=== PATIENT | male | born 1955 | race Caucasian/White ===

== ENCOUNTER 2018-04-05 19:27 | Emergency (ER) | payer OTHER ==
--- NOTE | 2018-04-05 19:46 | ERPHSYRPT ---
- History of Present Illness Time Seen by Provider: 04/05/18 19:37 Historian: patient, EMS Exam Limitations: no limitations Physician History: Patient is a 62-year-old male brought in by ambulance from the [facility] when he developed chest pain about 3 hours ago after working on his car. He had only coffee to drink in the morning. The chest pain is described as sharp and achy. He rates it initially an 8 of 10. He denies shortness of breath. He was nauseated and vomited. He was very sweaty and clammy when the EMS arrived. EMS started fluids by IV and gave him one nitroglycerin and 4 baby aspirin. His pain is now a 4 out of 10. He smokes cigarettes. He has no primary care physician. He takes no prescriptions. His father had open heart surgery at age 59. Timing/Duration: today, hour(s) (3) Activities at Onset: activity Quality: aching, sharpness Location: central Chest Pain Radiation: no radiation Severity of Pain-Max: severe Severity of Pain-Current: moderate Modifying Factors: Improves With: nitroglycerin, aspirin Associated Symptoms: nausea, vomiting, diaphoresis, No shortness of breath Prior Chest Pain/Cardiac Workup: no prior chest pain Nitro Today/Relief: 0.4 mg x 3, provided by EMS, provided by ED, mild relief Aspirin Treatment Today: 81 mg x 4, provided by EMS Allergies/Adverse Reactions: morphine Adverse Reaction (Verified 04/05/18 19:51) Skin Irritation - Review of Systems Constitutional: No Fever, No Chills Eyes: No Symptoms Ears, Nose, & Throat: No Symptoms Respiratory: No Cough, No Dyspnea Cardiac: Chest Pain Abdominal/Gastrointestinal: Nausea, Vomiting Genitourinary Symptoms: No Dysuria Musculoskeletal: No Back Pain, No Neck Pain Skin: No Rash Neurological: No Dizziness, No Focal Weakness, No Sensory Changes Psychological: No Symptoms Endocrine: No Symptoms Hematologic/Lymphatic: No Symptoms Immunological/Allergic: No Symptoms All Other Systems: Reviewed and Negative - Nursing Vital Signs Nursing Vital Signs: Initial Vital Signs Temperature 99.2 F 04/05/18 19:31 Pulse Rate 60 04/05/18 19:31 Respiratory Rate 16 04/05/18 19:31 Blood Pressure 112/66 04/05/18 19:31 O2 Sat by Pulse Oximetry 98 04/05/18 19:31 Pain Scale Pain Intensity 3 - Physical Exam General Appearance: mild distress, alert, thin Eye Exam: PERRL/EOMI, eyes nml inspection Ears, Nose, Throat Exam: dry mucous membranes Neck Exam: normal inspection, non-tender, supple, full range of motion Respiratory Exam: normal breath sounds, lungs clear, No respiratory distress Cardiovascular Exam: regular rate/rhythm, normal heart sounds Gastrointestinal/Abdomen Exam: soft, No tenderness, No mass Rectal Exam: not done Back Exam: normal inspection, No CVA tenderness, No vertebral tenderness Extremity Exam: normal inspection, normal range of motion Neurologic Exam: alert, oriented x 3, cooperative, normal mood/affect, sensation nml, No motor deficits Skin Exam: normal color, warm, dry SpO2 Interpretation: normal Oxygen Delivery: Room Air Ordered Tests: Active Orders 24 hr Category Date Time Status Traveling Secretary STAT Care 04/05/18 19:52 Active EKG-ER Only STAT Care 04/05/18 19:51 Active IV Insertion STAT Care 04/05/18 19:51 Active Oxygen-ED Only NASAL CANNULA 2 lpm Care 04/05/18 19:51 Active Pulse Oximetry (ED) STAT Care 04/05/18 19:51 Active CHEST 2 VIEWS (PA AND LAT) Stat Exams 04/05/18 19:52 Taken CBC W DIFF Stat Lab 04/05/18 20:45 Completed CMP Stat Lab 04/05/18 20:45 Completed D-DIMER QUANTITATION Stat Lab 04/05/18 20:45 Completed NT PRO BNP Stat Lab 04/05/18 20:45 Completed TROPONIN Q3H Lab 04/05/18 20:45 Completed TROPONIN Q3H Lab 04/05/18 23:00 Ordered TROPONIN Q3H Lab 04/06/18 02:00 Ordered TROPONIN Q3H Lab 04/06/18 05:00 Ordered TROPONIN Q3H Lab 04/06/18 08:00 Ordered Urine Triage Profile Stat Lab 04/05/18 22:21 Received Medication Summary Generic Name Dose Route Start Last Admin Trade Name Freq PRN Reason Stop Dose Admin Sodium Chloride 1,000 mls @ 999 mls/hr 04/05/18 21:59 04/05/18 22:18 Sodium Chloride 0.9% 1000 Ml IV 04/05/18 22:59 999 mls/hr .Q1H1M STA Administration Discontinued Medications Generic Name Dose Route Start Last Admin Trade Name Freq PRN Reason Stop Dose Admin Sodium Chloride 1,000 mls @ 999 mls/hr 04/05/18 19:51 04/05/18 21:12 Sodium Chloride 0.9% 1000 Ml IV 04/05/18 20:51 Infused .Q1H1M STA Infusion Sodium Chloride Confirm 04/05/18 20:02 Sodium Chloride 0.9% 1000 Ml Administered 04/05/18 20:03 Dose 1,000 mls @ ud .ROUTE .STK-MED ONE Sodium Chloride Confirm 04/05/18 22:02 Sodium Chloride 0.9% 1000 Ml Administered 04/05/18 22:03 Dose 1,000 mls @ ud .ROUTE .STK-MED ONE Nitroglycerin 0.4 mg 04/05/18 19:51 04/05/18 20:10 Nitrostat 0.4 Mg (Ed) SL 04/05/18 19:52 0.4 mg STAT ONE Administration Nitroglycerin Confirm 04/05/18 20:02 Nitrostat 0.4 Mg (Ed) Administered 04/05/18 20:03 Dose 0.4 mg SL .STK-MED ONE Nitroglycerin 0.4 mg 04/05/18 21:15 04/05/18 21:07 Nitrostat 0.4 Mg (Ed) SL 04/05/18 21:16 0.4 mg STAT ONE Administration Ondansetron HCl 4 mg 04/05/18 19:51 04/05/18 20:12 Zofran 4 Mg/2 Ml Vial IV 04/05/18 19:52 4 mg STAT ONE Administration Ondansetron HCl Confirm 04/05/18 20:02 Zofran 4 Mg/2 Ml Vial Administered 04/05/18 20:03 Dose 4 mg .ROUTE .STK-MED ONE Lab/Rad Data: Laboratory Result Diagrams 04/05/18 20:45 04/05/18 20:45 Laboratory Results 04/05/18 04/05/18 04/05/18 Range/Units 20:45 20:45 20:45 WBC (4.0-10.5) K/mm3 RBC (4.1-5.6) M/mm3 Hgb (12.5-18.0) gm/dl Hct (42-50) % MCV (78-100) fl MCH (26-32) pg MCHC (32-36) g/dl RDW (11.5-14.0) % Plt Count (150-450) K/mm3 MPV (6-9.5) fl Gran % (36.0-66.0) % Eos # (Auto) (0-0.5) Absolute Lymphs (auto) (1.0-4.6) Absolute Monos (auto) (0.0-1.3) Lymphocytes % (24.0-44.0) % Monocytes % (0.0-12.0) % Eosinophils % (0.00-5.0) % Basophils % (0.0-0.4) % Absolute Granulocytes (1.4-6.9) Basophils # (0-0.4) D-Dimer 364 (215-500) ng/mL Sodium 141 (137-145) mmol/L Potassium 3.6 (3.5-5.1) mmol/L Chloride 110 H (98-107) mmol/L Carbon Dioxide 24 (22-30) mmol/L Anion Gap 11.2 (5-15) MEQ/L BUN 17 (9-20) mg/dL Creatinine 0.96 (0.66-1.25) mg/dL Estimated GFR > 60.0 ML/MIN Glucose 121 H (74-106) mg/dL Calcium 8.5 (8.4-10.2) mg/dL Total Bilirubin 1.70 H (0.2-1.3) mg/dL AST 17 (17-59) U/L ALT 11 (0-50) U/L Alkaline Phosphatase 51 (38-126) U/L Troponin I < 0.012 (0.000-0.034) ng/mL NT-Pro-B Natriuret Pep 324 (0-900) pg/mL Serum Total Protein 6.1 L (6.3-8.2) g/dL Albumin 3.6 (3.5-5.0) g/dL 04/05/18 Range/Units 20:45 WBC 11.9 H (4.0-10.5) K/mm3 RBC 4.38 (4.1-5.6) M/mm3 Hgb 14.2 (12.5-18.0) gm/dl Hct 41.0 L (42-50) % MCV 93.6 (78-100) fl MCH 32.4 H (26-32) pg MCHC 34.6 (32-36) g/dl RDW 12.9 (11.5-14.0) % Plt Count 163 (150-450) K/mm3 MPV 11.1 H (6-9.5) fl Gran % 79.6 H (36.0-66.0) % Eos # (Auto) 0.22 (0-0.5) Absolute Lymphs (auto) 1.24 (1.0-4.6) Absolute Monos (auto) 0.91 (0.0-1.3) Lymphocytes % 10.5 L (24.0-44.0) % Monocytes % 7.7 (0.0-12.0) % Eosinophils % 1.9 (0.00-5.0) % Basophils % 0.3 (0.0-0.4) % Absolute Granulocytes 9.46 H (1.4-6.9) Basophils # 0.03 (0-0.4) D-Dimer (215-500) ng/mL Sodium (137-145) mmol/L Potassium (3.5-5.1) mmol/L Chloride (98-107) mmol/L Carbon Dioxide (22-30) mmol/L Anion Gap (5-15) MEQ/L BUN (9-20) mg/dL Creatinine (0.66-1.25) mg/dL Estimated GFR ML/MIN Glucose (74-106) mg/dL Calcium (8.4-10.2) mg/dL Total Bilirubin (0.2-1.3) mg/dL AST (17-59) U/L ALT (0-50) U/L Alkaline Phosphatase (38-126) U/L Troponin I (0.000-0.034) ng/mL NT-Pro-B Natriuret Pep (0-900) pg/mL Serum Total Protein (6.3-8.2) g/dL Albumin (3.5-5.0) g/dL - Progress Progress: improved Air Movement: good Blood Culture(s) Obtained: No Antibiotics given: No Discussed with : Other (Dr Resendiz at [place]) Counseled pt/family regarding: lab results, diagnosis, need for follow-up, rad results - Departure Time of Disposition: 22:41 Departure Disposition: Transfer (Transfer to [facility] per Dr Resendiz, hospitalist.) Clinical Impression: Chest pain Condition: Stable Critical Care Time: No
[2018-04-05] MEDS ORDERED: Nitrostat 0.4 MG (ED) SL ONE ×3 (19:51→21:15)
[2018-04-05] MEDS ORDERED: Sodium Chloride 0.9% 1000 ML 1,000 ML IV STA ×2 (19:51→21:59)
[2018-04-05] MEDS ORDERED: Zofran 4 MG/2 ML VIAL IV ONE (19:51)
[2018-04-05] MEDS ORDERED: Zofran 4 MG/2 ML VIAL ONE (20:02)
[2018-04-05] MEDS ORDERED: Sodium Chloride 0.9% 1000 ML 1,000 ML ONE ×2 (20:02→22:02)
[2018-04-05 20:50] LABS: BASOPHIL % 0.3 % (0.0-0.4); Basophil (Absolute #) 0.03 (0-0.4); Eosinophil % 1.9 % (0.00-5.0); Eosinophil (Absolute #) 0.22 (0-0.5); Granulocyte Absolute (ANC) 9.46 (1.4-6.9); Granulocytes % 79.6 % (36.0-66.0); Hemoglobin 14.2 gm/dl (12.5-18.0); Lymphocyte (Absolute #) 1.24 (1.0-4.6); Lymphocytes % 10.5 % (24.0-44.0); Mean Cell Volume 93.6 fl (78-100); Mean Corpuscular Hemoglobin 32.4 pg (26-32); Mean Corpuscular Hgb Concent. 34.6 g/dl (32-36); Mean Platelet Volume 11.1 fl (6-9.5); Monocyte (Absolute #) 0.91 (0.0-1.3); Monocytes % 7.7 % (0.0-12.0); Platelet Count 163 K/mm3 (150-450); Red Blood Count 4.38 M/mm3 (4.1-5.6); Red Cell Distribution Width 12.9 % (11.5-14.0); White Blood Count 11.9 K/mm3 (4.0-10.5)
[2018-04-05 21:24] LABS: ALBUMIN 3.6 g/dL (3.5-5.0); ALKALINE PHOSPHATASE 51 U/L (38-126); ANION GAP 11.2 MEQ/L (5-15); BLOOD UREA NITROGEN 17 mg/dL (9-20); CHLORIDE 110 mmol/L (98-107); Calcium 8.5 mg/dL (8.4-10.2); Carbon Dioxide 24 mmol/L (22-30); Creatinine 1 0.96 mg/dL (0.66-1.25); Glucose 121 mg/dL (74-106); Potassium 3.6 mmol/L (3.5-5.1); SGOT/AST 17 U/L (17-59); SGPT/ALT 11 U/L (0-50); SODIUM 141 mmol/L (137-145); Total Protein 6.1 g/dL (6.3-8.2)
[2018-04-05 21:31] LABS: NT PRO BNP 324 pg/mL (0-900)
[2018-04-05 22:39] LABS: Amphetamine,Urine NEGATIVE (NEGATIVE); Barbiturate,Urine NEGATIVE (NEGATIVE); Benzodiazepine,Urine NEGATIVE (NEGATIVE); Cocaine,Urine NEGATIVE (NEGATIVE); Methadone,Urine NEGATIVE (NEGATIVE); Opiate,Urine NEGATIVE (NEGATIVE); PCP,Urine NEGATIVE (NEGATIVE); THC,Urine NEGATIVE (NEGATIVE)
[2018-04-05 23:38] VITALS: BP 118/63; PULSE 65; O2SAT 98
--- NOTE | 2018-04-06 08:35 | XRAY ---
Indication: Chest pain. Comparison: None PA/lateral chest demonstrates normal heart and lungs. Bony thorax intact with minimal degenerative changes.
== END 2018-04-06 | disposition short-term general hospital (02) ==
LOC: ED 19:27
DX: R07.9 Chest pain, unspecified (principal); R11.2 Nausea with vomiting, unspecified; R61 Generalized hyperhidrosis; F17.210 Nicotine dependence, cigarettes, uncomplicated
CPT/HCPCS: 36415; 71046; 80053; 80307; 83880; 84484; 85025; 85379; 93005; 93041; 96360; 96361; 96374; 99285; J2405; A9270-GY